=== PATIENT | female | born 1935 | race Caucasian/White ===

== ENCOUNTER 2016-09-18 18:03 | Inpatient (IN) | payer MEDICARE, OTHER ==
[2016-09-18] VITALS (121 sets, daily range): BP systolic 157–171; BP diastolic 77–81; PULSE 90; TEMP 98; O2SAT 90–98
[~2016-09-18] VITALS: Ht 152.4 cm; Wt 53.7 kg
[~2016-09-18 18:03] MED LIST: ACYCLOVIR400 MG PO; AMLODIPINE5 MG PO; ANTIVERT 25MG25 MG PO; CALCIUM 600-D 61 TAB PO; CELLCEPT 5500 MG/TAB PO; CELLCEPT500 MG PO; CEPHALEXIN500 M1 PO; COLACE 100100 MG/CAP PO; FIORICET 325 MG1 TAB PO; FISH OIL 1000MG1 CAP PO; GICOCKTAIL PO; HYDROCODONE/APAP; LOPRESSOR 225 MG/TAB PO; LOPRESSOR 550 MG/TAB PO; MECLIZINE25 MG PO; METOPROLOL50 MG PO; NITROSTAT0.4 MG/TAB SL; NORCO 325 MG-101 TAB PO; NORVASC 5MG5 MG/TAB PO; PREVACID 15MG15 M1 PO; PREVACID 30MG30 M1 PO; PREVACID 30MG30 MG PO; PROGRAF 1MG1 MG PO; PROGRAF1 MG PO; REMERON 15M15 MG/TA1 PO; REMERON15 MG PO; SYNTHROID0.05 MG/TA PO; SYNTHROID0.075 MG PO; SYNTHROID0.1 MG/TAB PO; TOPROL XL50 MG PO; TYLENOL 325MG325 MG PO; VICODIN 5/5001 UDTAB PO; ZOFRAN 4MG T4 MG/TAB PO; see list
[2016-09-18 18:39] LABS: BASO % 0.3 % (0.0-2.0); GRAN # 5.5 (1.4-6.5); GRAN % 83.4 % (42.2-75.2); LYMPH # 0.9 (1.2-3.4); LYMPH % 13.1 % (20.0-51.0); MEAN CELL VOLUME 91 fl (80.0-100.0); MEAN CORPUSCULAR HGB CONC 32 g/dl (33.0-37.0); MEAN PLATELET VOLUME 10.1 fl (7.4-10.4); MONO # 0.2 (0.1-0.6); MONO % 2.4 % (1.7-9.3); PLATELET COUNT 239 K/mm3 (130-400); RED BLOOD COUNT 3.63 M/mm3 (4.10-5.30); REDCELL DISTRIBUTION WIDTH-CV 12.9 % (11.5-14.5); WHITE BLOOD COUNT 6.6 K/mm3 (4.8-10.8)
[2016-09-18 18:40] LABS: HEMATOCRIT 33.1 % (37.0-47.0); HEMOGLOBIN 10.7 g/dl (12.5-16.0); MEAN CORPUSCULAR HEMOGLOBIN 29 pg (27.0-31.0)
[2016-09-18 18:46] LABS: ADJUSTED CALCIUM 10.1 mg/dL (8.4-10.2); BILIRUBIN,TOTAL 0.7 mg/dL (0.0-1.0); CALCIUM 10.1 mg/dL (8.4-10.2); CREATININE, serum 1.78 mg/dL (0.52-1.25); POTASSIUM 4.8 mmol/L (3.4-5.0); TOTAL PROTEIN 6.8 gm/dL (6.4-8.2)
[2016-09-18] MEDS ORDERED: NORVASC2.5 MG PO (18:53)
[2016-09-18] MEDS ORDERED: LASIX 40MG TABL40 MG PO (18:54)
[2016-09-18] MEDS ORDERED: XODOL 7.5 PO (18:55)
[2016-09-18] MEDS ORDERED: PREVACID 15MG15 M1 PO (18:56)
[2016-09-18 18:57] LABS: TROPONIN-I 0.017 ng/mL (0.000-0.034)
[2016-09-18] MEDS ORDERED: PROGRAF 1MG1 MG PO (18:57)
[2016-09-18] MEDS ORDERED: VITAMIN D31000 I1 PO (18:58)
[2016-09-18 19:46] LABS: PH 6 (5-8); SQUAMOUS EPITHELIAL None Seen /hpf; URINE APPEARANCE Clear; URINE BACTERIA None Seen /hpf; URINE BILIRUBIN Negative (NEGATIVE); URINE BLOOD Negative (NEGATIVE); URINE COLOR Yellow; URINE GLUCOSE 1+ (NEGATIVE); URINE KETONE Trace (NEGATIVE); URINE RBC 0-2 /hpf; URINE UROBILINOGEN Negative (NEGATIVE); URINE WBC 0-2 /hpf
[2016-09-18 20:49] LABS: MAGNESIUM 1.9 mg/dL (1.6-2.3); PHOSPHOROUS 4.4 mg/dL (2.5-4.5)
[2016-09-19] VITALS (568 sets, daily range): BP systolic 123–178; BP diastolic 63–82; PULSE 77–94; TEMP 97.5–99.1; O2SAT 73–99
[2016-09-19 06:23] LABS: GRAN # 4.9 (1.4-6.5); LYMPH # 0.5 (1.2-3.4); LYMPH % 9.4 % (20.0-51.0); MEAN CELL VOLUME 92 fl (80.0-100.0); MEAN CORPUSCULAR HGB CONC 32 g/dl (33.0-37.0); MEAN PLATELET VOLUME 10.4 fl (7.4-10.4); MONO # 0.3 (0.1-0.6); MONO % 4.3 % (1.7-9.3); PLATELET COUNT 195 K/mm3 (130-400); RED BLOOD COUNT 2.95 M/mm3 (4.10-5.30); REDCELL DISTRIBUTION WIDTH-CV 13.2 % (11.5-14.5); WHITE BLOOD COUNT 5.8 K/mm3 (4.8-10.8)
[2016-09-19 06:26] LABS: HEMATOCRIT 27.1 % (37.0-47.0); HEMOGLOBIN 8.6 g/dl (12.5-16.0); MEAN CORPUSCULAR HEMOGLOBIN 29 pg (27.0-31.0)
[2016-09-19 06:39] LABS: CALCIUM 9.5 mg/dL (8.4-10.2); CREATININE, serum 1.76 mg/dL (0.52-1.25); POTASSIUM 4.9 mmol/L (3.4-5.0)
[2016-09-19 06:55] LABS: TROPONIN-I 0.054 ng/mL (0.000-0.034)
[2016-09-20 00:33] LABS: PROGRAF 8.4 ng/mL (5.0-15.0)
[2016-09-20 01:16] VITALS: BP 160/82; PULSE 85; TEMP 98
[2016-09-20 05:49] VITALS: BP 146/73; PULSE 87; TEMP 98.3
[2016-09-20 07:13] LABS: BASO % 0.5 % (0.0-2.0); EOS % 0.3 % (0-4.0); GRAN # 6.2 (1.4-6.5); GRAN % 78.5 % (42.2-75.2); LYMPH # 0.9 (1.2-3.4); LYMPH % 11.9 % (20.0-51.0); MEAN CELL VOLUME 92 fl (80.0-100.0); MEAN CORPUSCULAR HGB CONC 32 g/dl (33.0-37.0); MEAN PLATELET VOLUME 9.8 fl (7.4-10.4); MONO # 0.6 (0.1-0.6); MONO % 7.8 % (1.7-9.3); PLATELET COUNT 205 K/mm3 (130-400); RED BLOOD COUNT 3.13 M/mm3 (4.10-5.30); REDCELL DISTRIBUTION WIDTH-CV 13.5 % (11.5-14.5); WHITE BLOOD COUNT 7.9 K/mm3 (4.8-10.8)
[2016-09-20 07:21] LABS: HEMATOCRIT 28.9 % (37.0-47.0); HEMOGLOBIN 9.2 g/dl (12.5-16.0); MEAN CORPUSCULAR HEMOGLOBIN 29 pg (27.0-31.0)
[2016-09-20 07:29] LABS: ADJUSTED CALCIUM 10.1 mg/dL (8.4-10.2); BILIRUBIN,TOTAL 0.4 mg/dL (0.0-1.0); CALCIUM 9.3 mg/dL (8.4-10.2); CREATININE, serum 1.71 mg/dL (0.52-1.25); PHOSPHOROUS 4.1 mg/dL (2.5-4.5); POTASSIUM 4.6 mmol/L (3.4-5.0); TOTAL PROTEIN 5.4 gm/dL (6.4-8.2)
[2016-09-20 10:11] VITALS: BP 137/83; PULSE 92; TEMP 98.2
[2016-09-20 14:49] VITALS: BP 174/80; PULSE 94; TEMP 99
[2016-09-20 17:12] VITALS: BP 138/77; PULSE 91; TEMP 98.8
[2016-09-20 20:00] VITALS: BP 152/69; PULSE 93; TEMP 98.6
[2016-09-21] VITALS (7 sets, daily range): BP systolic 105–178; BP diastolic 48–91; PULSE 84–98; TEMP 97.7–98.7
[2016-09-21 01:19] LABS: PH 5 (5-8); SQUAMOUS EPITHELIAL 0-2 /hpf; URINE APPEARANCE Clear; URINE BACTERIA None Seen /hpf; URINE BILIRUBIN Negative (NEGATIVE); URINE BLOOD 1+ (NEGATIVE); URINE COLOR Yellow; URINE GLUCOSE Negative (NEGATIVE); URINE KETONE Negative (NEGATIVE); URINE RBC None Seen /hpf; URINE UROBILINOGEN Negative (NEGATIVE); URINE WBC 0-2 /hpf
[2016-09-21 01:33] LABS: URINE PROTEIN:CREAT RATIO 4.81 (0.00-0.14)
[2016-09-21 07:13] LABS: CALCIUM 9.2 mg/dL (8.4-10.2); CREATININE, serum 1.54 mg/dL (0.52-1.25); POTASSIUM 4.2 mmol/L (3.4-5.0)
[2016-09-22] VITALS (12 sets, daily range): BP systolic 142–189; BP diastolic 76–98; PULSE 75–106; TEMP 97.6–98.5
[2016-09-22 10:55] LABS: ALBUMIN 3.5 gm/dL (3.5-5.0); CALCIUM 9.7 mg/dL (8.4-10.2); CREATININE, serum 1.51 mg/dL (0.52-1.25); PHOSPHOROUS 3.5 mg/dL (2.5-4.5); POTASSIUM 3.6 mmol/L (3.4-5.0)
[2016-09-23] VITALS (7 sets, daily range): BP systolic 120–160; BP diastolic 64–78; PULSE 73–89; TEMP 97.6–98.4
[2016-09-23 08:02] LABS: CALCIUM 9.3 mg/dL (8.4-10.2); CREATININE, serum 1.47 mg/dL (0.52-1.25); PHOSPHOROUS 3.5 mg/dL (2.5-4.5); POTASSIUM 3.8 mmol/L (3.4-5.0)
[2016-09-24 04:17] VITALS: BP 145/81; PULSE 84; TEMP 98.7
[2016-09-24 06:58] LABS: ALBUMIN 3.2 gm/dL (3.5-5.0); CALCIUM 9.3 mg/dL (8.4-10.2); CREATININE, serum 1.6 mg/dL (0.52-1.25); PHOSPHOROUS 3.7 mg/dL (2.5-4.5); POTASSIUM 3.9 mmol/L (3.4-5.0)
[2016-09-24 07:52] VITALS: BP 140/70; PULSE 96; TEMP 98.2
[2016-09-24 09:48] LABS: PROTHROMBIN TIME 10.7 SECONDS (9.7-12.8)
[2016-09-24 12:15] VITALS: BP 139/40; PULSE 96; TEMP 98
[2016-09-24 15:52] LABS: PLEURAL FLUID - PMN 48.2 % (0-25)
[2016-09-24 16:02] LABS: PLEURAL FLUID RIGHT SIDE; PLEURAL FLUID COLOR AMBER
[2016-09-24 16:03] LABS: PLEURAL FLUID APPEARANCE HAZY
[2016-09-24 17:41] VITALS: BP 117/61; PULSE 60; TEMP 87.8; TEMP 97.8
[2016-09-24 19:53] VITALS: BP 118/59; PULSE 82; TEMP 98.3
[2016-09-24 23:21] VITALS: BP 131/66; PULSE 73; TEMP 98.9
[2016-09-25 03:18] VITALS: BP 129/66; PULSE 75; TEMP 98.9
[2016-09-25 06:47] LABS: ALBUMIN 2.8 gm/dL (3.5-5.0); CALCIUM 8.9 mg/dL (8.4-10.2); CREATININE, serum 1.94 mg/dL (0.52-1.25); PHOSPHOROUS 4.1 mg/dL (2.5-4.5); POTASSIUM 4.1 mmol/L (3.4-5.0)
[2016-09-25 08:00] VITALS: BP 132/69; PULSE 85; TEMP 98.8
[2016-09-25 09:23] LABS: BASO % 0.5 % (0.0-2.0); EOS # 0.2 (0.0-0.7); EOS % 3.2 % (0-4.0); GRAN # 5.3 (1.4-6.5); GRAN % 71.1 % (42.2-75.2); LYMPH # 1.1 (1.2-3.4); LYMPH % 14.7 % (20.0-51.0); MEAN CELL VOLUME 92 fl (80.0-100.0); MEAN CORPUSCULAR HGB CONC 32 g/dl (33.0-37.0); MEAN PLATELET VOLUME 11.2 fl (7.4-10.4); MONO # 0.7 (0.1-0.6); MONO % 9.8 % (1.7-9.3); PLATELET COUNT 262 K/mm3 (130-400); RED BLOOD COUNT 3.48 M/mm3 (4.10-5.30); REDCELL DISTRIBUTION WIDTH-CV 13.9 % (11.5-14.5); WHITE BLOOD COUNT 7.5 K/mm3 (4.8-10.8)
[2016-09-25 09:26] LABS: HEMATOCRIT 32.1 % (37.0-47.0); HEMOGLOBIN 10.3 g/dl (12.5-16.0); MEAN CORPUSCULAR HEMOGLOBIN 30 pg (27.0-31.0)
[2016-09-25 11:48] VITALS: BP 123/60; PULSE 69; TEMP 98.3
[2016-09-25 15:48] VITALS: BP 110/55; PULSE 80; TEMP 98.3
[2016-09-25 20:12] VITALS: BP 131/64; PULSE 85; TEMP 98.7
[2016-09-25 23:21] VITALS: BP 133/70; PULSE 73; TEMP 98.4
[2016-09-26 03:20] VITALS: BP 129/70; PULSE 74; TEMP 97.7
[2016-09-26 06:31] LABS: ALBUMIN 2.7 gm/dL (3.5-5.0); CALCIUM 8.8 mg/dL (8.4-10.2); CREATININE, serum 1.98 mg/dL (0.52-1.25); PHOSPHOROUS 3.9 mg/dL (2.5-4.5); POTASSIUM 4.1 mmol/L (3.4-5.0)
[2016-09-26 08:16] VITALS: BP 132/71; PULSE 80; TEMP 98.7
[2016-09-26 11:27] VITALS: BP 140/70; PULSE 75; TEMP 98.1
[2016-09-26 11:38] LABS: PROTHROMBIN TIME 10.6 SECONDS (9.7-12.8)
[2016-09-26 11:40] LABS: PARTIAL THROMBOPLASTIN TIME 44.8 SECONDS (26.0-37.0)
[2016-09-26 16:02] VITALS: BP 134/66; PULSE 73; TEMP 97.4
[2016-09-26 20:07] VITALS: BP 136/63; PULSE 85; TEMP 98.7
[2016-09-26 22:59] VITALS: BP 161/94; PULSE 77; TEMP 97.8
[2016-09-27 03:11] VITALS: BP 153/83; PULSE 72; TEMP 98.4
[2016-09-27 07:39] LABS: ALBUMIN 2.7 gm/dL (3.5-5.0); CALCIUM 9.1 mg/dL (8.4-10.2); CREATININE, serum 1.88 mg/dL (0.52-1.25); PHOSPHOROUS 3.6 mg/dL (2.5-4.5)
[2016-09-27 07:43] VITALS: BP 149/69; PULSE 82; TEMP 97.7
[2016-09-27] MEDS ORDERED: LOPRESSOR 225 MG/TAB PO (08:59)
[2016-09-27] MEDS ORDERED: COZAAR 25MG25 MG/TAB PO (09:00)
[2016-09-27] MEDS ORDERED: ASPIRIN 81M81 MG/TA2 PO (09:01)
[2016-09-27] MEDS ORDERED: XODOL 7.5 PO (09:02)
[2016-09-27] MEDS ORDERED: TYLENOL 325MG325 MG PO (09:03)
[2016-09-27] MEDS ORDERED: BUMEX 1MG TA1 MG/TA1 PO (09:15)
== END 2016-09-27 12:41 | DRG 281 ==
LOC: COL.ER 18:03 → ICU 19:22 → SURG 09-19 11:08 → MEDICAL 09-23 15:30
PROVIDERS: Emergency Medicine; Family Medicine; Internal Medicine; Internal Medicine Nephrology; Nurse Practitioner Family
PROC: 0W993ZX Drainage of Right Pleural Cavity, Percutaneous Approach, Diagnostic (ICD-10-PCS; principal; 2016-09-24)
PROC: 0W9B3ZZ Drainage of Left Pleural Cavity, Percutaneous Approach (ICD-10-PCS; 2016-09-26)
DX: I16.0 Hypertensive urgency (principal); I21.4 Non-ST elevation (NSTEMI) myocardial infarction; Z94.0 Kidney transplant status; N17.9 Acute kidney failure, unspecified; J90 Pleural effusion, not elsewhere classified; I12.9 Hypertensive chronic kidney disease with stage 1 through stage 4 chronic kidney disease, or unspecified chronic kidney disease; N18.9 Chronic kidney disease, unspecified; G43.909 Migraine, unspecified, not intractable, without status migrainosus; F03.90 Unspecified dementia, unspecified severity, without behavioral disturbance, psychotic disturbance, mood disturbance, and anxiety
CPT/HCPCS: 99232-AI; 99233-AI; 99239; A9502; G0378; J0360; J1644; J2270; J2405; J2550; J2785; J7030; J7040; J7507; J7517

== ENCOUNTER 2018-02-10 10:51 | Outpatient (CLI) | payer MEDICARE, BC, OTHER ==
[2008-04-07 14:20] VITALS: BP 189/96
[~2018-02-10] VITALS: Ht 152.4 cm; Wt 49.2 kg
[~2018-02-10 10:51] MED LIST changes: +ASPIRIN 81M81 MG/TA2 PO; +BUMEX 1MG TA1 MG/TA1 PO; +COZAAR 25MG25 MG/TAB PO; +LASIX 40MG TABL40 MG PO; +NORVASC2.5 MG PO; +VITAMIN D31000 I1 PO; +XODOL 7.5 PO
[2018-02-10 11:32] VITALS: BP 146/68; PULSE 58; TEMP 98.3
== END 2018-02-10 13:28 | disposition home or self-care (01) ==
LOC: EUO 10:51
DX: N18.3 Chronic kidney disease, stage 3 (moderate) (principal); D63.1 Anemia in chronic kidney disease; Z79.899 Other long term (current) drug therapy
CPT/HCPCS: J0881; J0881-EA-EB-EC

== ENCOUNTER 2018-03-24 13:59 | Outpatient (CLI) | payer MEDICARE, BC, OTHER ==
[2008-04-07 14:20] VITALS: BP 189/96
[2018-03-24 14:47] VITALS: BP 110/66; PULSE 60
== END 2018-03-24 15:00 | disposition home or self-care (01) ==
LOC: EUO 13:59
DX: N18.3 Chronic kidney disease, stage 3 (moderate) (principal); D63.1 Anemia in chronic kidney disease; Z79.899 Other long term (current) drug therapy
CPT/HCPCS: J0881

== ENCOUNTER 2018-04-27 14:28 | Outpatient (CLI) | payer MEDICARE, OTHER ==
[2008-04-07 14:20] VITALS: BP 189/96
[2018-04-27 15:11] VITALS: BP 155/61; BP 180/63; PULSE 65; TEMP 98.2
== END 2018-04-27 15:16 | disposition home or self-care (01) ==
LOC: EUO 14:28
DX: D63.1 Anemia in chronic kidney disease (principal); N18.3 Chronic kidney disease, stage 3 (moderate)
CPT/HCPCS: J0881

== ENCOUNTER 2018-06-01 14:32 | Outpatient (CLI) | payer MEDICARE, OTHER ==
[2008-04-07 14:20] VITALS: BP 189/96
[~2018-06-01] VITALS: Ht 152.4 cm; Wt 67.0 kg
[2018-06-01 15:05] VITALS: BP 131/54; PULSE 65; TEMP 98.2
== END 2018-06-01 15:24 | disposition home or self-care (01) ==
LOC: EUO 14:32
DX: D63.1 Anemia in chronic kidney disease (principal); N18.3 Chronic kidney disease, stage 3 (moderate)
CPT/HCPCS: J0881

== ENCOUNTER 2018-09-29 14:00 | Outpatient (RCR) | payer MEDICARE, OTHER ==
[2008-04-07 14:20] VITALS: BP 189/96
[2018-07-07 14:00] VITALS: BP 160/69; PULSE 66; TEMP 97.8
[2018-07-21 14:40] LABS: HEMATOCRIT 27.1 % (37.0-47.0); HEMOGLOBIN 8.2 g/dl (12.5-16.0)
[2018-07-21 14:58] VITALS: BP 140/54; PULSE 62; TEMP 98.1
[2018-08-04 14:07] VITALS: BP 142/69; PULSE 66; TEMP 98
[2018-08-18 14:04] LABS: HEMATOCRIT 32.1 % (37.0-47.0); HEMOGLOBIN 9.8 g/dl (12.5-16.0)
[2018-08-18 14:20] VITALS: BP 158/66; PULSE 66; TEMP 98.4
[2018-09-01 11:09] VITALS: BP 151/60; PULSE 84; TEMP 98.4
[2018-09-15 13:37] LABS: HEMATOCRIT 34.8 % (37.0-47.0); HEMOGLOBIN 10.7 g/dl (12.5-16.0)
[2018-09-15 13:54] VITALS: BP 149/55; PULSE 59; TEMP 99
[~2018-09-29] VITALS: Ht 152.4 cm; Wt 49.4 kg
[2018-09-29 14:59] VITALS: BP 166/70; PULSE 68; TEMP 98
== END 2018-10-05 ==
LOC: EUO
PROVIDERS: Internal Medicine; Internal Medicine Nephrology
DX: N18.3 Chronic kidney disease, stage 3 (moderate) (principal); D63.1 Anemia in chronic kidney disease
CPT/HCPCS: J0881

== ENCOUNTER 2018-10-12 14:12 | Outpatient (RCR) | payer MEDICARE, OTHER ==
[2008-04-07 14:20] VITALS: BP 189/96
[~2018-10-12] VITALS: Ht 152.4 cm; Wt 48.9 kg
[2018-10-12 14:50] VITALS: BP 143/63; PULSE 67; TEMP 98.2
[2018-10-12 15:19] LABS: HEMOGLOBIN 12.1 g/dl (12.5-16.0)
--- NOTE | 2018-10-26 18:06 | NUR ---
Call received from Jagjit,Nurse at [facility] office.Pt bar stopped at this time.requested order from office.Per Jagjit,She will send order
== END 2018-10-26 18:07 | disposition home or self-care (01) ==
LOC: EUO 14:12
PROVIDERS: Internal Medicine Nephrology
DX: D63.1 Anemia in chronic kidney disease (principal); N18.3 Chronic kidney disease, stage 3 (moderate); Z79.899 Other long term (current) drug therapy
CPT/HCPCS: J0881

== ENCOUNTER 2019-02-16 14:00 | Outpatient (RCR) | payer MEDICARE, OTHER ==
[2008-04-07 14:20] VITALS: BP 189/96
[2018-11-25 13:29] VITALS: BP 161/70; PULSE 58; TEMP 98
[2018-12-09 13:28] VITALS: BP 146/67; PULSE 62; TEMP 97.9
[2018-12-23 15:18] VITALS: BP 168/68; PULSE 67; TEMP 97.3
[2019-01-06 13:55] VITALS: BP 154/67; PULSE 63; TEMP 98.3
[2019-01-20 10:24] VITALS: BP 154/48; PULSE 60; TEMP 98.4
[2019-01-20 10:26] LABS: HEMATOCRIT 31.8 % (37.0-47.0); HEMOGLOBIN 9.7 g/dl (12.5-16.0)
[2019-02-02 14:07] VITALS: BP 141/60; PULSE 61; TEMP 97.9
[~2019-02-16] VITALS: Ht 152.4 cm; Wt 48.5 kg
[2019-02-16 14:04] LABS: HEMATOCRIT 28.5 % (37.0-47.0); HEMOGLOBIN 8.8 g/dl (12.5-16.0)
[2019-02-16 14:27] VITALS: BP 151/54; PULSE 65; TEMP 97.9
== END 2019-02-23 | disposition home or self-care (01) ==
LOC: EUO
PROVIDERS: Internal Medicine Nephrology
DX: N18.3 Chronic kidney disease, stage 3 (moderate) (principal); D63.1 Anemia in chronic kidney disease; Z79.899 Other long term (current) drug therapy
CPT/HCPCS: J0881; J0882

== ENCOUNTER → 2019-02-25 | Outpatient (CLI) | payer MEDICARE, OTHER | LOC: COL.VAS 13:30 | DX: N18.5 Chronic kidney disease, stage 5 (principal) | CPT/HCPCS: G0365 ==

== ENCOUNTER 2019-03-03 13:51 | Outpatient (RCR) | payer MEDICARE, OTHER ==
[2008-04-07 14:20] VITALS: BP 189/96
[~2019-03-03] VITALS: Ht 152.4 cm; Wt 48.5 kg
[2019-03-03 14:04] VITALS: BP 156/75; PULSE 61; TEMP 98.1
== END 2019-03-03 14:25 | disposition home or self-care (01) ==
LOC: EUO 13:51
DX: N18.4 Chronic kidney disease, stage 4 (severe) (principal); D63.1 Anemia in chronic kidney disease
CPT/HCPCS: J0881

== ENCOUNTER 2019-03-31 08:41 | Observation (INO) | payer MEDICARE, OTHER ==
[~2019-03-31] VITALS: Ht 149.9 cm; Wt 46.2 kg
[2019-03-31 09:52] LABS: BASO # 0.1 (0.0-0.2); BASO % 1.3 % (0.0-2.0); EOS # 0.1 (0.0-0.7); GRAN # 3.4 (1.4-6.5); GRAN % 71.4 % (42.2-75.2); HEMOGLOBIN 10.9 g/dl (12.5-16.0); LYMPH # 0.9 (1.2-3.4); LYMPH % 18.4 % (20.0-51.0); MEAN CELL VOLUME 94 fl (80.0-100.0); MEAN CORPUSCULAR HEMOGLOBIN 29 pg (27.0-31.0); MEAN CORPUSCULAR HGB CONC 31 g/dl (33.0-37.0); MEAN PLATELET VOLUME 9.4 fl (7.4-10.4); MONO # 0.4 (0.1-0.6); MONO % 7.7 % (1.7-9.3); PLATELET COUNT 261 K/mm3 (130-400); RED BLOOD COUNT 3.72 M/mm3 (4.10-5.30); REDCELL DISTRIBUTION WIDTH-CV 14.1 % (11.5-14.5)
[2019-03-31 09:56] LABS: INR 0.9 (0.8-3.0); PROTHROMBIN TIME 10.9 SECONDS (9.7-12.8)
[2019-03-31 09:58] LABS: ALBUMIN 3.8 gm/dL (3.5-5.0); BILIRUBIN,TOTAL 0.4 mg/dL (0.0-1.0); CALCIUM 9.5 mg/dL (8.4-10.2); CREATININE, serum 2.86 (0.52-1.25); POTASSIUM 3.8 mmol/L (3.4-5.0); TOTAL PROTEIN 6.3 gm/dL (6.4-8.2)
[2019-03-31 10:09] LABS: TROPONIN-I 0.017 ng/mL (0.000-0.035)
[2019-03-31 13:00] VITALS: BP 168/93; PULSE 69
[2019-03-31 14:56] VITALS: BP 164/81; PULSE 88
[2019-03-31 14:57] VITALS: BP 158/72; PULSE 87
[2019-03-31 14:58] VITALS: BP 167/75; PULSE 87
[2019-03-31 16:34] VITALS: BP 180/72; PULSE 73; TEMP 97.5
[2019-03-31 16:43] VITALS: BP 180/72; PULSE 73; TEMP 97.5
--- NOTE | 2019-03-31 19:28 | NUR ---
patient dc to home accompanied by Son Stanley via private vehicle @ 1930. Printed dc instructions to include medications and hospital diagnosis reviewed with patient and son. No questions or cocnerns after review. Left unit in WC accompanied by Nasrin WHITESIDE.
== END 2019-03-31 19:30 | disposition home or self-care (01) ==
LOC: COL.ER 08:41 → MEDICAL 10:52 → EDBEDREQ 12:52 → MEDICAL 14:18
PROVIDERS: Emergency Medicine; ADMIT Internal Medicine Nephrology
DX: R07.89 Other chest pain (principal); I12.0 Hypertensive chronic kidney disease with stage 5 chronic kidney disease or end stage renal disease; N18.6 End stage renal disease; Z99.2 Dependence on renal dialysis; Z94.0 Kidney transplant status; E03.9 Hypothyroidism, unspecified; M19.90 Unspecified osteoarthritis, unspecified site; I08.3 Combined rheumatic disorders of mitral, aortic and tricuspid valves; Z79.82 Long term (current) use of aspirin; Z88.1 Allergy status to other antibiotic agents; Z88.5 Allergy status to narcotic agent; Z88.6 Allergy status to analgesic agent; Z88.8 Allergy status to other drugs, medicaments and biological substances
CPT/HCPCS: A9500; G0378; J2785

== ENCOUNTER 2019-06-08 14:00 | Outpatient (RCR) | payer MEDICARE, OTHER ==
[2008-04-07 14:20] VITALS: BP 189/96
[2019-03-16 14:41] LABS: HEMATOCRIT 30.1 % (37.0-47.0); HEMOGLOBIN 9.4 g/dl (12.5-16.0)
[2019-03-16 15:13] VITALS: BP 158/61; PULSE 58; TEMP 98
[2019-03-30 14:33] VITALS: BP 157/65; PULSE 63; TEMP 98.2
[2019-04-13 14:09] VITALS: BP 149/62; PULSE 58; TEMP 98.2
[2019-04-13 14:09] LABS: HEMOGLOBIN 10.9 g/dl (12.5-16.0)
[2019-04-27 14:14] VITALS: BP 123/66; PULSE 61; TEMP 98
[2019-05-11 14:14] LABS: HEMOGLOBIN 9.3 g/dl (12.5-16.0)
[2019-05-11 14:38] VITALS: BP 165/70; PULSE 98; TEMP 98.1
[2019-05-25 13:41] VITALS: BP 181/67; PULSE 72; TEMP 98.3
[~2019-06-08] VITALS: Ht 152.4 cm; Wt 47.2 kg
[~2019-06-08 14:00] MED LIST changes: +DOXYCYCLINE HY100 MG PO
[2019-06-08 14:28] VITALS: BP 155/66; PULSE 60; TEMP 98.1
[2019-06-08 14:42] LABS: HEMATOCRIT 30.2 % (37.0-47.0); HEMOGLOBIN 9.4 g/dl (12.5-16.0)
== END 2019-06-14 ==
LOC: EUO
PROVIDERS: Internal Medicine Nephrology
DX: N18.4 Chronic kidney disease, stage 4 (severe) (principal); D63.1 Anemia in chronic kidney disease; Z79.899 Other long term (current) drug therapy
CPT/HCPCS: J0881

== ENCOUNTER 2019-09-15 14:00 | Outpatient (RCR) | payer MEDICARE, OTHER ==
[2008-04-07 14:20] VITALS: BP 189/96
[2019-06-21 10:05] VITALS: BP 174/68; PULSE 70; TEMP 97.7
[2019-07-05 10:14] VITALS: BP 141/64; PULSE 60; TEMP 98.2
[2019-07-05 10:27] LABS: HEMATOCRIT 28.7 % (37.0-47.0)
[2019-07-19 10:33] VITALS: BP 158/74; PULSE 70; TEMP 98.4
[2019-08-04 11:13] LABS: HEMATOCRIT 30.2 % (37.0-47.0); HEMOGLOBIN 9.3 g/dl (12.5-16.0)
[2019-08-04 12:36] VITALS: BP 162/96; PULSE 65; TEMP 97.6
[2019-08-18 14:38] VITALS: BP 154/57; PULSE 65; TEMP 98.1
[2019-09-01 14:21] LABS: HEMATOCRIT 26.9 % (37.0-47.0); HEMOGLOBIN 8.4 g/dl (12.5-16.0)
[2019-09-01 15:00] VITALS: BP 145/67; PULSE 62; TEMP 98.7
[~2019-09-15] VITALS: Ht 152.4 cm; Wt 47.8 kg
[2019-09-15 13:53] VITALS: BP 160/71; PULSE 76; TEMP 97.7
== END 2019-09-19 | disposition home or self-care (01) ==
LOC: EUO
PROVIDERS: Internal Medicine Nephrology
DX: N18.6 End stage renal disease (principal)
CPT/HCPCS: J0881; Q5106

== ENCOUNTER 2019-11-24 14:00 | Outpatient (RCR) | payer MEDICARE, OTHER ==
[2008-04-07 14:20] VITALS: BP 189/96
[2019-09-29 14:15] VITALS: BP 131/68; PULSE 65; TEMP 98.6
[2019-09-29 14:40] LABS: HEMATOCRIT 26.1 % (37.0-47.0); HEMOGLOBIN 8.2 g/dl (12.5-16.0)
[2019-10-13 13:17] VITALS: BP 162/64; PULSE 69; TEMP 98.5
[2019-10-27 14:41] VITALS: BP 161/68; PULSE 55; TEMP 98.4
[2019-10-27 14:42] LABS: HEMATOCRIT 25.8 % (37.0-47.0); HEMOGLOBIN 7.9 g/dl (12.5-16.0)
[2019-11-10 14:22] VITALS: BP 127/61; PULSE 83; TEMP 98.1
[~2019-11-24] VITALS: Ht 152.4 cm; Wt 47.5 kg
[2019-11-24 14:44] LABS: HEMATOCRIT 24.7 % (37.0-47.0); HEMOGLOBIN 7.7 g/dl (12.5-16.0)
[2019-11-24 15:10] VITALS: BP 138/57; PULSE 63; TEMP 98.1
== END 2019-12-08 07:08 | disposition home or self-care (01) ==
LOC: EUO 14:00
PROVIDERS: Internal Medicine Nephrology
DX: N18.5 Chronic kidney disease, stage 5 (principal); D63.1 Anemia in chronic kidney disease; Z79.899 Other long term (current) drug therapy
CPT/HCPCS: Q5106

== ENCOUNTER 2020-03-01 10:00 | Outpatient (RCR) | payer MEDICARE, OTHER ==
[2008-04-07 14:20] VITALS: BP 189/96
[2019-12-08 14:43] VITALS: BP 143/51; PULSE 58; TEMP 97.9
[2019-12-22 14:28] LABS: HEMATOCRIT 22.5 % (37.0-47.0)
[2019-12-22 14:50] VITALS: BP 134/54; PULSE 51; TEMP 98.3
[2020-01-05 14:32] VITALS: BP 136/59; PULSE 69; TEMP 99
[2020-01-19 14:24] VITALS: BP 140/58; PULSE 68; TEMP 98.6
[2020-01-19 15:23] LABS: HEMATOCRIT 23.2 % (37.0-47.0); HEMOGLOBIN 7.3 g/dl (12.5-16.0)
[2020-02-03 15:04] VITALS: BP 156/69; PULSE 67; TEMP 98.2
[2020-02-16 14:15] LABS: HEMATOCRIT 26.1 % (37.0-47.0)
[2020-02-16 14:57] VITALS: BP 153/52; PULSE 63; TEMP 98
[~2020-03-01] VITALS: Ht 152.4 cm; Wt 47.6 kg
[2020-03-01 10:45] VITALS: BP 145/60; PULSE 64; TEMP 98.2
== END 2020-03-01 10:46 | disposition home or self-care (01) ==
LOC: EUO 10:00
PROVIDERS: Internal Medicine Nephrology
DX: N18.5 Chronic kidney disease, stage 5 (principal); D63.1 Anemia in chronic kidney disease; Z99.2 Dependence on renal dialysis
CPT/HCPCS: J2916; Q5106

== ENCOUNTER 2020-05-17 15:00 | Outpatient (RCR) | payer MEDICARE, OTHER ==
[2008-04-07 14:20] VITALS: BP 189/96
[2020-03-15 15:18] LABS: HEMATOCRIT 24.8 % (37.0-47.0); HEMOGLOBIN 7.6 g/dl (12.5-16.0)
[2020-03-15 15:42] VITALS: BP 159/66; PULSE 58; TEMP 98.3
[2020-03-29 14:51] VITALS: BP 172/70; PULSE 69; TEMP 98.5
[2020-04-26 14:46] LABS: HEMATOCRIT 30.7 % (37.0-47.0); HEMOGLOBIN 9.5 g/dl (12.5-16.0)
[2020-04-26 15:07] VITALS: BP 175/59; PULSE 70; TEMP 98.2
[~2020-05-17] VITALS: Ht 152.4 cm; Wt 47.7 kg
[~2020-05-17 15:00] MED LIST changes: +IMODIUM 2MG CAPS2 MG PO; +LASIX 20MG TABL20 MG PO; -LASIX 40MG TABL40 MG PO; +PROTONIX20 MG PO; +SODIUM BICARBO650 MG PO; -SYNTHROID0.05 MG/TA PO; +SYNTHROID0.075 MG/T PO
[2020-05-17 15:47] VITALS: BP 152/64; PULSE 69; TEMP 98.4
[2020-05-18] MEDS ORDERED: ANTI-DIARRHEAL (08:56)
[2020-09-17] MEDS ORDERED: NORVASC 5MG5 MG/TAB PO (11:22)
[2020-09-17] MEDS ORDERED: EPA FISH OIL1 SGL PO (11:23)
[2020-09-17] MEDS ORDERED: LASIX 20MG TABL20 MG PO (11:23)
[2020-09-17] MEDS ORDERED: COZAAR 25MG25 MG/TAB PO (11:24)
[2020-09-18] MEDS ORDERED: TYLENOL 325MG325 MG PO (09:25)
[2020-09-18] MEDS ORDERED: IRON TABLETS325 MG PO (09:27)
[2020-09-18] MEDS ORDERED: EPA FISH OIL1 SGL PO (16:35)
[2020-09-18] MEDS ORDERED: ASPIRIN 81M81 MG/TA2 PO (16:36)
== END 2020-05-17 17:57 | disposition home or self-care (01) ==
LOC: EUO 15:00
PROVIDERS: Internal Medicine Nephrology
DX: N18.5 Chronic kidney disease, stage 5 (principal); D63.1 Anemia in chronic kidney disease
CPT/HCPCS: Q5106

== ENCOUNTER 2020-05-18 07:17 | Outpatient (CLI) | payer MEDICARE, OTHER ==
[2008-04-07 14:20] VITALS: BP 189/96
[~2020-05-18] VITALS: Ht 147.3 cm; Wt 47.3 kg
[2020-05-18] MEDS ORDERED: ANTI-DIARRHEAL (08:56)
[2020-05-18 08:57] VITALS: BP 188/76; PULSE 73; TEMP 98.4
--- NOTE | 2020-05-18 09:15 | NUR ---
Pt returns from thoracentesis via cart and this RN. Pt requests muffin and juice. Pt has no complaints of pain or nausea. Daughter present in room. Pt alert and oriented.
--- NOTE | 2020-05-18 09:45 | NUR ---
Pt taking food and drink well. No complications voiced by pt.
--- NOTE | 2020-05-18 10:05 | NUR ---
Dr. Quezada calls to relay pt has no pneumothorax, and pt may be discharged.
--- NOTE | 2020-05-18 10:25 | NUR ---
Pt transferred out of hospital via wheelchair and this RN to private vehicle driven by daughter.
[2020-09-17] MEDS ORDERED: NORVASC 5MG5 MG/TAB PO (11:22)
[2020-09-17] MEDS ORDERED: LASIX 20MG TABL20 MG PO (11:23)
[2020-09-17] MEDS ORDERED: EPA FISH OIL1 SGL PO (11:23)
[2020-09-17] MEDS ORDERED: COZAAR 25MG25 MG/TAB PO (11:24)
[2020-09-18] MEDS ORDERED: TYLENOL 325MG325 MG PO (09:25)
[2020-09-18] MEDS ORDERED: IRON TABLETS325 MG PO (09:27)
[2020-09-18] MEDS ORDERED: EPA FISH OIL1 SGL PO (16:35)
[2020-09-18] MEDS ORDERED: ASPIRIN 81M81 MG/TA2 PO (16:36)
== END 2020-05-18 10:25 | disposition home or self-care (01) ==
LOC: SDCO 07:17
DX: J90 Pleural effusion, not elsewhere classified (principal); N18.9 Chronic kidney disease, unspecified; I27.20 Pulmonary hypertension, unspecified; D64.9 Anemia, unspecified; Z88.8 Allergy status to other drugs, medicaments and biological substances
CPT/HCPCS: 19804

== ENCOUNTER → 2020-05-22 | Outpatient (CLI) | payer MEDICARE, OTHER ==
[2008-04-07 14:20] VITALS: BP 189/96
[~2020-05-22] VITALS: Ht 375.9 cm; Wt 49.0 kg
[~2020-05-22] MED LIST changes: +ANTI-DIARRHEAL; +EPA FISH OIL1 SGL PO; +IRON TABLETS325 MG PO; +LASIX 40MG TABL40 MG PO
[2020-05-22 07:45] VITALS: BP 161/60; PULSE 62; TEMP 98.2
[2020-05-22 08:30] VITALS: BP 200/92; PULSE 78; TEMP 98.2
[2020-05-22 08:45] VITALS: BP 170/87; PULSE 75
[2020-05-22 09:00] VITALS: BP 179/71; PULSE 74
[2020-05-22 09:15] VITALS: BP 189/71; PULSE 73
--- NOTE | 2020-05-22 09:48 | NUR ---
0830 PATIENT RATES PAIN TO L BACK 09/15. PATIENT MOANING AND GRIMACING. DR. ZAMBRANO NOTIFIED. NEW ORDERS RECEIVED.
--- NOTE | 2020-05-22 09:50 | NUR ---
0845 MORPHINE 2 MG IM GIVEN TO R DELTOID FOR COMPLAINT OF PAIN. RATES 09/15.
--- NOTE | 2020-05-22 09:51 | NUR ---
0900 PATIENT REPORTS IMPROVING COMFORT. TAKING CHOCOLATE PUDDING AND CRANBERRY JUICE PO.
--- NOTE | 2020-05-22 09:53 | NUR ---
DR. ZAMBRANO NOTIFIED THAT NO PNEUMOTHORAX IS PRESENT. PATIENT RATES PAIN 5/10. DISCHARGE INSTRUCTIONS GIVEN VERBALLY AND IN WRITING TO PATIENT AND PATIENT'S DAUGHTER IN LAW. BOTH VERBALIZED UNDERSTANDING. PATIENT UP GETTING DRESSED.
--- NOTE | 2020-05-22 09:56 | NUR ---
0936 PATIENT DISCHARGED TO POV VIA W/C WITH DAUGHTER IN-LAW.
== END ==
LOC: SDCO 06:37
DX: J90 Pleural effusion, not elsewhere classified (principal); N18.9 Chronic kidney disease, unspecified; I27.20 Pulmonary hypertension, unspecified; D64.9 Anemia, unspecified
CPT/HCPCS: J2270

== ENCOUNTER 2020-05-31 14:11 | Outpatient (CLI) | payer MEDICARE, OTHER ==
[2008-04-07 14:20] VITALS: BP 189/96
[~2020-05-31] VITALS: Ht 152.4 cm; Wt 49.7 kg
[~2020-05-31 14:11] MED LIST changes: -EPA FISH OIL1 SGL PO; -IRON TABLETS325 MG PO; -LASIX 40MG TABL40 MG PO
[2020-05-31 14:50] LABS: HEMATOCRIT 26.7 % (37.0-47.0)
[2020-05-31 15:07] VITALS: BP 125/52; PULSE 63; TEMP 98.3
[2020-09-17] MEDS ORDERED: NORVASC 5MG5 MG/TAB PO (11:22)
[2020-09-17] MEDS ORDERED: LASIX 20MG TABL20 MG PO (11:23)
[2020-09-17] MEDS ORDERED: EPA FISH OIL1 SGL PO (11:23)
[2020-09-17] MEDS ORDERED: COZAAR 25MG25 MG/TAB PO (11:24)
[2020-09-18] MEDS ORDERED: TYLENOL 325MG325 MG PO (09:25)
[2020-09-18] MEDS ORDERED: IRON TABLETS325 MG PO (09:27)
[2020-09-18] MEDS ORDERED: EPA FISH OIL1 SGL PO (16:35)
[2020-09-18] MEDS ORDERED: ASPIRIN 81M81 MG/TA2 PO (16:36)
== END 2020-05-31 15:40 | disposition home or self-care (01) ==
LOC: EUO 14:11
PROVIDERS: Internal Medicine Nephrology
DX: N18.5 Chronic kidney disease, stage 5 (principal); D63.1 Anemia in chronic kidney disease
CPT/HCPCS: Q5105; Q5106

== ENCOUNTER 2020-06-28 14:00 | Outpatient (RCR) | payer MEDICARE, OTHER ==
[2008-04-07 14:20] VITALS: BP 189/96
[2020-06-14 14:28] VITALS: BP 159/64; PULSE 63; TEMP 97.9
--- NOTE | 2020-06-14 15:10 | NUR ---
Pt assisted out by wheelchair to friend's car.
[~2020-06-28] VITALS: Ht 152.4 cm; Wt 49.4 kg
[2020-06-28 14:30] VITALS: BP 155/64; PULSE 64; TEMP 98.3
[2020-06-28 14:42] LABS: HEMATOCRIT 25.5 % (37.0-47.0); HEMOGLOBIN 7.6 g/dl (12.5-16.0)
[2020-09-17] MEDS ORDERED: NORVASC 5MG5 MG/TAB PO (11:22)
[2020-09-17] MEDS ORDERED: LASIX 20MG TABL20 MG PO (11:23)
[2020-09-17] MEDS ORDERED: EPA FISH OIL1 SGL PO (11:23)
[2020-09-17] MEDS ORDERED: COZAAR 25MG25 MG/TAB PO (11:24)
[2020-09-18] MEDS ORDERED: TYLENOL 325MG325 MG PO (09:25)
[2020-09-18] MEDS ORDERED: IRON TABLETS325 MG PO (09:27)
[2020-09-18] MEDS ORDERED: EPA FISH OIL1 SGL PO (16:35)
[2020-09-18] MEDS ORDERED: ASPIRIN 81M81 MG/TA2 PO (16:36)
== END 2020-06-28 17:09 | disposition home or self-care (01) ==
LOC: EUO 14:00
PROVIDERS: Internal Medicine Nephrology
DX: N18.5 Chronic kidney disease, stage 5 (principal); D63.1 Anemia in chronic kidney disease
CPT/HCPCS: Q5106

== ENCOUNTER 2020-07-12 14:08 | Outpatient (RCR) | payer MEDICARE, OTHER ==
[2008-04-07 14:20] VITALS: BP 189/96
[~2020-07-12] VITALS: Ht 152.4 cm; Wt 57.1 kg
[2020-07-12 15:11] LABS: HEMATOCRIT 25.2 % (37.0-47.0); HEMOGLOBIN 7.7 g/dl (12.5-16.0)
[2020-07-12 15:40] VITALS: BP 185/78; PULSE 67; TEMP 98.4
[2020-09-17] MEDS ORDERED: NORVASC 5MG5 MG/TAB PO (11:22)
[2020-09-17] MEDS ORDERED: LASIX 20MG TABL20 MG PO (11:23)
[2020-09-17] MEDS ORDERED: EPA FISH OIL1 SGL PO (11:23)
[2020-09-17] MEDS ORDERED: COZAAR 25MG25 MG/TAB PO (11:24)
[2020-09-18] MEDS ORDERED: TYLENOL 325MG325 MG PO (09:25)
[2020-09-18] MEDS ORDERED: IRON TABLETS325 MG PO (09:27)
[2020-09-18] MEDS ORDERED: EPA FISH OIL1 SGL PO (16:35)
[2020-09-18] MEDS ORDERED: ASPIRIN 81M81 MG/TA2 PO (16:36)
== END 2020-07-12 16:04 | disposition home or self-care (01) ==
LOC: EUO 14:08
PROVIDERS: Internal Medicine Nephrology
DX: N18.5 Chronic kidney disease, stage 5 (principal); D63.1 Anemia in chronic kidney disease; Z79.899 Other long term (current) drug therapy
CPT/HCPCS: Q5106

== ENCOUNTER 2020-07-26 14:04 | Outpatient (RCR) | payer MEDICARE, OTHER ==
[2008-04-07 14:20] VITALS: BP 189/96
[~2020-07-26] VITALS: Ht 152.4 cm; Wt 52.9 kg
[2020-07-26 14:58] VITALS: BP 156/67; PULSE 65; TEMP 98.6
[2020-09-17] MEDS ORDERED: NORVASC 5MG5 MG/TAB PO (11:22)
[2020-09-17] MEDS ORDERED: LASIX 20MG TABL20 MG PO (11:23)
[2020-09-17] MEDS ORDERED: EPA FISH OIL1 SGL PO (11:23)
[2020-09-17] MEDS ORDERED: COZAAR 25MG25 MG/TAB PO (11:24)
[2020-09-18] MEDS ORDERED: TYLENOL 325MG325 MG PO (09:25)
[2020-09-18] MEDS ORDERED: IRON TABLETS325 MG PO (09:27)
[2020-09-18] MEDS ORDERED: EPA FISH OIL1 SGL PO (16:35)
[2020-09-18] MEDS ORDERED: ASPIRIN 81M81 MG/TA2 PO (16:36)
== END 2020-07-26 17:11 | disposition home or self-care (01) ==
LOC: EUO 14:04
DX: N18.5 Chronic kidney disease, stage 5 (principal); D63.1 Anemia in chronic kidney disease
CPT/HCPCS: Q5106

== ENCOUNTER 2020-08-07 08:13 | Inpatient (IN) | payer MEDICARE, OTHER ==
[~2020-08-07] VITALS: Ht 152.4 cm; Wt 46.8 kg
[2020-08-07 08:47] VITALS: BP 163/64; PULSE 66; TEMP 98.3
[2020-08-07 10:33] LABS: BASO # 0.1 (0.0-0.2); BASO % 0.9 % (0.0-2.0); EOS % 0.4 % (0-4.0); GRAN # 4.4 (1.4-6.5); LYMPH # 0.6 (1.2-3.4); LYMPH % 11.7 % (20.0-51.0); MEAN CELL VOLUME 96 fl (80.0-100.0); MEAN CORPUSCULAR HGB CONC 30 g/dl (33.0-37.0); MEAN PLATELET VOLUME 9.3 fl (7.4-10.4); MONO # 0.3 (0.1-0.6); MONO % 6.1 % (1.7-9.3); PLATELET COUNT 268 K/mm3 (130-400); RED BLOOD COUNT 2.82 M/mm3 (4.10-5.30)
[2020-08-07 10:35] LABS: HEMATOCRIT 27.1 % (37.0-47.0); HEMOGLOBIN 8.2 g/dl (12.5-16.0); MEAN CORPUSCULAR HEMOGLOBIN 29 pg (27.0-31.0)
[2020-08-07 10:46] LABS: ALBUMIN 3.5 gm/dL (3.5-5.0); CALCIUM 8.7 mg/dL (8.4-10.2); CREATININE, serum 3.52 (0.52-1.25); PHOSPHOROUS 3.8 mg/dL (2.5-4.5); POTASSIUM 4.1 mmol/L (3.4-5.0)
[2020-08-07 11:56] VITALS: BP 151/55; PULSE 69; TEMP 98.1
--- NOTE | 2020-08-07 15:21 | NUR ---
BRUCE met with the patient to discuss discharge plan. The patient lives in [place] with her , Rob (ph#[phone]). She reports independence with ADLs and has canes and walkers available, if needed. She states that she has home oxygen from [employer]. The patient's PCP is Dr. Ana Cristina Palomo and she receives her medications from [facility]. She reports no difficulties obtaining her meds. The patient does not have a DPOA-HC, but she was interested in obtaining a form. BRUCE provided. The patient plans to return home with her upon discharge. BRUCE discussed home health and it's benefits. The patient states that she is not sure if she would be interested in home health yet or not. She states that it depends on how she is feeling when it gets closer to d/c. BRUCE then contacted and reviewed the above with the patient's , Rob. Rob reports no concerns with the patient returning home upon discharge. PT/OT have been ordered. BRUCE to continue to follow. *Discharge plan: home with , awaiting therapy recs*
[2020-08-07 15:56] VITALS: BP 176/70; PULSE 72; TEMP 98.2
--- NOTE | 2020-08-07 17:57 | NUR ---
Pt direct admit this morning, admission assessments complete. IV access started in her right forearm, bumex gtt started. Purewick catheter applied.
--- NOTE | 2020-08-07 19:02 | NUR ---
Received report from Samir. Patient awake in bed. With purewick on. Denies needs at this time.
[2020-08-07 20:24] VITALS: BP 154/67; PULSE 73; TEMP 98.7
--- NOTE | 2020-08-07 21:10 | NUR ---
Purewick and diaper has been changed by [facility]. Patient had a small soft bowel movement. She is on O2 at 3lpm via NC. On Bumex drip at 5ml/hr on her right forearm. Informed patient that we will start her 24 hour urine. She verbalizes understanding. She denies pain. Reinforced fluid restriction. Bed alarm on.
[2020-08-07 23:31] VITALS: BP 158/57; PULSE 68; TEMP 98.4
--- NOTE | 2020-08-07 23:40 | NUR ---
24 hour urine started. Assisted patient to the bathroom. Purewick changed.
[2020-08-08 03:51] VITALS: BP 169/60; PULSE 69; TEMP 98.5
--- NOTE | 2020-08-08 05:16 | NUR ---
Variance was noted in the weight due to [employer] TECHNICIAN took her weight via bedscale with SCD machine on. Re-weigh patient again without SCD machine and edited result.
[2020-08-08 06:28] LABS: BASO % 0.7 % (0.0-2.0); EOS # 0.1 (0.0-0.7); EOS % 1.1 % (0-4.0); GRAN % 75.1 % (42.2-75.2); LYMPH # 0.8 (1.2-3.4); LYMPH % 15.3 % (20.0-51.0); MEAN CELL VOLUME 96 fl (80.0-100.0); MEAN CORPUSCULAR HGB CONC 31 g/dl (33.0-37.0); MEAN PLATELET VOLUME 9.9 fl (7.4-10.4); MONO # 0.4 (0.1-0.6); MONO % 7.1 % (1.7-9.3); PLATELET COUNT 271 K/mm3 (130-400); RED BLOOD COUNT 2.62 M/mm3 (4.10-5.30)
[2020-08-08 06:36] LABS: HEMATOCRIT 25.2 % (37.0-47.0); HEMOGLOBIN 7.8 g/dl (12.5-16.0); MEAN CORPUSCULAR HEMOGLOBIN 30 pg (27.0-31.0)
[2020-08-08 06:38] LABS: CALCIUM 8.4 mg/dL (8.4-10.2); CREATININE, serum 3.34 (0.52-1.25); PHOSPHOROUS 3.7 mg/dL (2.5-4.5); POTASSIUM 3.8 mmol/L (3.4-5.0)
[2020-08-08 08:23] VITALS: BP 172/63; PULSE 78; TEMP 98.4
[2020-08-08 11:39] VITALS: BP 149/50; PULSE 66; TEMP 97.8
--- NOTE | 2020-08-08 13:51 | NUR ---
Pt awaker and alkert upon entry to room, Has C/O headache, medications given for relief. Shift assessments complete, left Pt call light in reach, bed in lowest position.
--- NOTE | 2020-08-08 15:16 | NUR ---
First visit from the insurance commissioner. No needs right now.
[2020-08-08 16:29] VITALS: BP 157/57; PULSE 70; TEMP 97.9
--- NOTE | 2020-08-08 16:30 | NUR ---
OT is recommending IPR vs home with family assist and home health. SW met with the patient to discuss their recommendation. The patient reports that she is unsure of what she wants to do. She states that she would like to talk to her , son, and Dr. Huggins first about the options. She states that she plans to talk to her family about the options tonight. SW to follow up with the patient and her family in the morning.
[2020-08-08 21:11] VITALS: BP 161/69; PULSE 77; TEMP 98.1
[2020-08-09 01:04] VITALS: BP 157/58; PULSE 71; TEMP 98
[2020-08-09 01:23] LABS: CREATININE, serum 3.34 (0.52-1.25); URINE TOTAL VOLUME 950 mL
--- NOTE | 2020-08-09 03:30 | NUR ---
24 HOUR URINE SPECIMEN COLLECTION COMPLETE AT 2345. PT CURRENTLY C/O PAIN TO BILATERAL HEELS, RATES 3/10. BOTH HEELS REDDENED, HEELS ELEVATED, MEDICATION ADMINISTERED ORDERED. CALL LIGHT WITHIN REACH.
[2020-08-09 05:06] VITALS: BP 166/57; PULSE 72; TEMP 98.5
--- NOTE | 2020-08-09 06:08 | NUR ---
PT SLEPT MAJORITY OF NIGHT. DENIES SOB, DIZZINESS, N,V,D. SYSTOLIC BP 166 AT 0400 VITAL SIGNS READING. PRN MEDICATION ADMINISTERED ORDERED. CALL LIGHT WITHIN REACH.
[2020-08-09 06:41] LABS: ALBUMIN 2.9 gm/dL (3.5-5.0); CALCIUM 8.7 mg/dL (8.4-10.2); CREATININE, serum 3.63 (0.52-1.25); POTASSIUM 3.9 mmol/L (3.4-5.0)
[2020-08-09 06:46] LABS: BASO % 0.3 % (0.0-2.0); EOS % 0.1 % (0-4.0); GRAN # 11.9 (1.4-6.5); GRAN % 87.7 % (42.2-75.2); LYMPH # 0.7 (1.2-3.4); LYMPH % 5.3 % (20.0-51.0); MEAN CELL VOLUME 96 fl (80.0-100.0); MEAN CORPUSCULAR HGB CONC 31 g/dl (33.0-37.0); MEAN PLATELET VOLUME 9.8 fl (7.4-10.4); MONO # 0.8 (0.1-0.6); MONO % 5.5 % (1.7-9.3); PLATELET COUNT 284 K/mm3 (130-400); RED BLOOD COUNT 2.71 M/mm3 (4.10-5.30); REDCELL DISTRIBUTION WIDTH-CV 14.3 % (11.5-14.5)
[2020-08-09 06:52] LABS: MEAN CORPUSCULAR HEMOGLOBIN 30 pg (27.0-31.0)
[2020-08-09 07:11] LABS: PHOSPHOROUS 3.9 mg/dL (2.5-4.5)
[2020-08-09 07:30] VITALS: BP 143/51; PULSE 69; TEMP 98.1
--- NOTE | 2020-08-09 09:21 | NUR ---
Pt awake and alert upon entry, has C/O mild headache, medications given for relief. Shift assessments complete, PT in room.
[2020-08-09 11:31] VITALS: BP 136/50; PULSE 59; TEMP 98
--- NOTE | 2020-08-09 15:12 | NUR ---
BRUCE met with the patient, her son (Stanley), and [id number] to follow up on preference for post-acute rehab vs home with home health. PT is recommending that she will likely need post-acute rehab. BRUCE informed the patient and her family. The patient reports that she would prefer to return home with her and would be open to home health. She states that she had home health from [facility] in the past and would prefer them again. The patient's family were supportive of her decision. Her son and [id number] report that live next door to the patient and are able to check in on her frequently and help out. BRUCE contacted and faxed a referral to Linda at [facility]. Linda reports that they are able to accept the patient for services. Discharge plan: home with /family support and home health*
[2020-08-09 16:13] VITALS: BP 149/51; PULSE 71; TEMP 98
[2020-08-09 19:28] VITALS: BP 160/52; PULSE 71; TEMP 98.7
[2020-08-10 00:16] VITALS: BP 165/59; PULSE 79; TEMP 97.9
[2020-08-10 06:54] LABS: BASO % 0.4 % (0.0-2.0); EOS % 0.2 % (0-4.0); GRAN # 8.6 (1.4-6.5); GRAN % 87.5 % (42.2-75.2); LYMPH # 0.7 (1.2-3.4); LYMPH % 7.6 % (20.0-51.0); MEAN CELL VOLUME 96 fl (80.0-100.0); MEAN CORPUSCULAR HGB CONC 30 g/dl (33.0-37.0); MEAN PLATELET VOLUME 9.5 fl (7.4-10.4); MONO # 0.3 (0.1-0.6); MONO % 2.9 % (1.7-9.3); PLATELET COUNT 262 K/mm3 (130-400); RED BLOOD COUNT 2.78 M/mm3 (4.10-5.30); REDCELL DISTRIBUTION WIDTH-CV 14.2 % (11.5-14.5)
[2020-08-10 06:56] LABS: HEMATOCRIT 26.8 % (37.0-47.0); MEAN CORPUSCULAR HEMOGLOBIN 29 pg (27.0-31.0)
[2020-08-10 07:05] LABS: ALBUMIN 3.2 gm/dL (3.5-5.0); CREATININE, serum 3.67 (0.52-1.25); POTASSIUM 4.2 mmol/L (3.4-5.0)
[2020-08-10 07:19] LABS: PHOSPHOROUS 4.1 mg/dL (2.5-4.5)
--- NOTE | 2020-08-10 07:40 | NUR ---
PT HAD EVENTFUL NIGHT. PT C/O HEADACHE AND ABDOMINAL PAIN THAT KEPT HER UP ALL NEXT. PAIN MEDICATION ADMINISTERED ORDERED. NURSE CONDUCTED BLADDER SCAN TO CHECK FOR DISTENTION, ONLY 21ML RECORDED VIA SCAN. CHANGE OF SHIFT CONDUCTED AND INFORMATION RELAYED TO ONCOMING SHIFT.
--- NOTE | 2020-08-10 08:00 | NUR ---
PATIENT IS A&O. NOTED ELEVATED B/P IN THE 160'S, PATIENT HAS HX OF HTN. PATIENT DENIES SOA OR CHEST PAIN AT REST. 02 @ 3L PC NC WITH SATS IN UPPER 90'S, ALL OTHER VSS. PATIENT SCHEDULED TO HAVE DIALYSIS TODAY AND POSSIBLE THOROCENTESIS. HEAD TO TOE ASSESSMENT COMPLETE, SEE SHIFT ASSESSMENT. AM MEDS GIVEN. PT/OT CONSULTED. NO OTHER NEEDS. CALL LIGHT IN REACH.
[2020-08-10 08:24] VITALS: BP 175/64; PULSE 73; TEMP 98.2
--- NOTE | 2020-08-10 09:00 | NUR ---
PATIENT OFF FLOOR TO DIALYSIS
--- NOTE | 2020-08-10 12:10 | NUR ---
Patient tolerated 1st HD tx with 1.05L of fluid removal. Next plannned HD tx tomorrow, Thursday08/11/20 @ 0830.
--- NOTE | 2020-08-10 12:30 | NUR ---
PATIENT BACK IN ROOM FROM DIALYSIS
[2020-08-10 13:11] VITALS: BP 162/53; PULSE 66; TEMP 97.6
--- NOTE | 2020-08-10 15:53 | NUR ---
The patient is to tentatively d/c tomorrow, 08/11. BRUCE met with the patient, her son, and [id number], to review d/c plan. The patient and her family confirm that the plan is to return home with [facility]. BRUCE presented and read the IM form outloud to the patient. The patient verbalized understanding and gave BRUCE approval to sign the form on her behalf. BRUCE provided her with a copy. BRUCE updated Jules at [facility] of d/c date.
[2020-08-10 16:24] VITALS: BP 141/49; PULSE 65; TEMP 97.8
--- NOTE | 2020-08-10 19:10 | NUR ---
Received report from Vickie. Patient currently eating her dinner.
[2020-08-10 19:33] VITALS: BP 143/59; PULSE 74; TEMP 98.4
--- NOTE | 2020-08-10 20:45 | NUR ---
Patient denies pain on her thora site. She states she doesn't have dyspnea on exertion anymore. She is aware of dialysis and another thoracentesis tomorrow. Her BLE has +1 edema. Still on O2 at 3lpm via NC.
[2020-08-10 23:24] VITALS: BP 140/61; PULSE 62; TEMP 97.8
[2020-08-11 02:41] LABS: HEPATITIS B SURFACE ANTIBODY 35.4 (()); HEPATITIS B SURFACE ANTIGEN Negative (Negative); HEPATITIS C VIRUS ANTIBODY Negative (Negative)
[2020-08-11 04:38] VITALS: BP 152/54; PULSE 73; TEMP 97.9
--- NOTE | 2020-08-11 05:54 | NUR ---
Patient had uneventful night. She denies pain. Assisted patient to the bathroom, standby assist. Call light within reach.
[2020-08-11 06:25] LABS: BASO # 0.1 (0.0-0.2); BASO % 0.8 % (0.0-2.0); EOS # 0.1 (0.0-0.7); EOS % 1.1 % (0-4.0); GRAN # 5.6 (1.4-6.5); GRAN % 78.9 % (42.2-75.2); LYMPH # 0.7 (1.2-3.4); LYMPH % 10.4 % (20.0-51.0); MEAN CELL VOLUME 98 fl (80.0-100.0); MEAN CORPUSCULAR HGB CONC 30 g/dl (33.0-37.0); MEAN PLATELET VOLUME 10.1 fl (7.4-10.4); MONO # 0.5 (0.1-0.6); MONO % 7.1 % (1.7-9.3); PLATELET COUNT 252 K/mm3 (130-400); RED BLOOD COUNT 2.48 M/mm3 (4.10-5.30); REDCELL DISTRIBUTION WIDTH-CV 14.2 % (11.5-14.5)
[2020-08-11 06:34] LABS: ALBUMIN 2.9 gm/dL (3.5-5.0); CALCIUM 9.1 mg/dL (8.4-10.2); CREATININE, serum 2.79 (0.52-1.25); HEMATOCRIT 24.3 % (37.0-47.0); HEMOGLOBIN 7.3 g/dl (12.5-16.0); MEAN CORPUSCULAR HEMOGLOBIN 29 pg (27.0-31.0)
[2020-08-11 06:44] LABS: PHOSPHOROUS 3.7 mg/dL (2.5-4.5)
[2020-08-11 08:00] VITALS: BP 148/90; PULSE 77; TEMP 36.8
[2020-08-11 09:34] VITALS: BP 160/68; PULSE 75; TEMP 98
[2020-08-11] MEDS ORDERED: COZAAR 25MG25 MG/TAB PO (09:42)
[2020-08-11] MEDS ORDERED: NORVASC2.5 MG PO (09:43)
[2020-08-11] MEDS ORDERED: LASIX 40MG TABL40 MG PO (09:44)
[2020-08-11 09:47] VITALS: BP 160/68; PULSE 75; TEMP 98.1
--- NOTE | 2020-08-11 11:33 | NUR ---
Erik faxed DC order to [facility] Home health care at 11:30 am on this day to
--- NOTE | 2020-08-11 12:56 | NUR ---
THOARACENTESIS COMPLETE. 800 ML OUT. PT DENIES SOB, N/V/D. VSS. PT TRANSPORTED TO DIALYSIS VIA STAFF AT 1200.
--- NOTE | 2020-08-11 13:08 | NUR ---
Patient tolerated her 2nd HD tx with 1.1L fluid removal. Next planned HD tx @ [facility] on Thursday08/14/2020 with chair time @ 0700.
[2020-09-17] MEDS ORDERED: NORVASC 5MG5 MG/TAB PO (11:22)
[2020-09-17] MEDS ORDERED: EPA FISH OIL1 SGL PO (11:23)
[2020-09-17] MEDS ORDERED: LASIX 20MG TABL20 MG PO (11:23)
[2020-09-17] MEDS ORDERED: COZAAR 25MG25 MG/TAB PO (11:24)
[2020-09-18] MEDS ORDERED: TYLENOL 325MG325 MG PO (09:25)
[2020-09-18] MEDS ORDERED: IRON TABLETS325 MG PO (09:27)
[2020-09-18] MEDS ORDERED: EPA FISH OIL1 SGL PO (16:35)
[2020-09-18] MEDS ORDERED: ASPIRIN 81M81 MG/TA2 PO (16:36)
== END 2020-08-11 15:00 | disposition home health service (06) | DRG 698 ==
LOC: MEDICAL 08:13
PROVIDERS: ADMIT Internal Medicine Nephrology
PROC: 0W9B3ZZ Drainage of Left Pleural Cavity, Percutaneous Approach (ICD-10-PCS; principal; 2020-08-10)
PROC: 5A1D70Z Performance of Urinary Filtration, Intermittent, Less than 6 Hours Per Day (ICD-10-PCS; 2020-08-10)
PROC: 0W993ZZ Drainage of Right Pleural Cavity, Percutaneous Approach (ICD-10-PCS; 2020-08-11)
DX: T86.12 Kidney transplant failure (principal); N18.6 End stage renal disease; E43 Unspecified severe protein-calorie malnutrition; I12.0 Hypertensive chronic kidney disease with stage 5 chronic kidney disease or end stage renal disease; N17.9 Acute kidney failure, unspecified; J90 Pleural effusion, not elsewhere classified; E03.9 Hypothyroidism, unspecified; M19.90 Unspecified osteoarthritis, unspecified site; D63.1 Anemia in chronic kidney disease; D50.9 Iron deficiency anemia, unspecified; E83.42 Hypomagnesemia; G43.909 Migraine, unspecified, not intractable, without status migrainosus; I27.20 Pulmonary hypertension, unspecified; R09.02 Hypoxemia; Z88.8 Allergy status to other drugs, medicaments and biological substances; Z88.1 Allergy status to other antibiotic agents; Z88.6 Allergy status to analgesic agent; Z68.22 Body mass index [BMI] 22.0-22.9, adult
CPT/HCPCS: J7030; J7507; J7517; Q5105